=== PATIENT | female | born 1990 | race Caucasian/White ===

== ENCOUNTER 2019-01-08 16:49 | Outpatient (CLI) | payer OTHER ==
[2019-01-08 17:27] VITALS: BP 122/75
--- NOTE | 2019-01-08 18:58 | Ultrasound Report ---
OB ultrasound Limited to include biophysical profile. HISTORY: Postdates. Evaluate well-being. FINDINGS: Limited OB ultrasound was performed. A viable intrauterine in the cephalic positi on has heart tones of 128 bpm. Amniotic fluid index is 10.6. Biophysical profile score is normal at 8/8. 2 points were received for breathing movement, feta l movement, posture and 10 and amniotic fluid volume. IMPRESSION: 1. Amniotic fluid index 10.6. 2. Biophysical profile normal at 8 of 8. Signer Name: Og Curtis MD Signed: 01/08/2019 6:54 PM Workstation Name: [id number]
== END 2019-01-08 19:34 | disposition home or self-care (01) ==
LOC: TRG 16:49
PROVIDERS: ATTEND Obstetrics & Gynecology
DX: O47.1 False labor at or after 37 completed weeks of gestation (principal); Z3A.39 39 weeks gestation of pregnancy
CPT/HCPCS: 59025; 76815; 76819

== ENCOUNTER 2019-01-09 14:31 | Outpatient (CLI) | payer SELFPAY ==
[2019-01-09 15:13] VITALS: BP 125/79
== END 2019-01-09 17:10 | disposition home or self-care (01) ==
LOC: TRG 14:31
PROVIDERS: ATTEND Obstetrics & Gynecology
DX: O47.1 False labor at or after 37 completed weeks of gestation (principal); Z3A.39 39 weeks gestation of pregnancy

== ENCOUNTER 2019-01-10 00:31 | Inpatient (IN) | payer OTHER ==
[2019-01-10] MEDS ORDERED: STADOL IV PRN (06:07)
[2019-01-10] MEDS ORDERED: XYLOCAINE 2% INFILTRATI ONE (06:07)
[2019-01-10] MEDS ORDERED: ZOFRAN IV PRN (06:07)
[2019-01-10] MEDS ORDERED: MINERAL OIL PO PRN (06:07)
[2019-01-10] MEDS ORDERED: BRETHINE SUB-Q PRN (06:07)
--- NOTE | 2019-01-10 06:25 | History and Physical Report ---
History of Present Illness Date of examination: 01/10/19 Date of admission: 01/10/2019 Chief complaint: Post-term @ 41 weeks; Early labor History of present illness: 28 yo, @ 41wks gestation, pt of [facility] initiating care at 6.1 wks. 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 Reports positive FM. Denies vaginal bleeding or LOF. Her has been complicated by +Chlaydia (07/18/18), followed by negative JAISON (08/16/18) and Thrombocytopenia with RBCs of 118. Labs:O+, antibody negative; PAP normal; Rubella immune; VDRL negative; HBsAg negative; HIV negative; Gc negative; MSAFP negative; 1 hr gtt - 103; GBS negative She desires to use Nexplanon PP as BCM, and wishes to have infant circumcised Past History Past Medical History: no pertinent history Past Surgical History: no surgical history [id number] [employer]OR [employer] History: abnormal PAP smear (2016) Family/Genetic History: none Social history: no significant social history, single, full code. denies: smoking, alcohol abuse, prescription drug abuse, IV drug use - Obstetrical History Expected Date of Delivery: 01/03/19 Actual Gestation: 41 Week(s) 0 Day(s) : 1 Para: 0 Hx # Term Pregnancies: 0 Number of Pregnancies: 0 Spontaneous Abortions: 0 Induced : 0 Number of Living Children: 0 Medications and Allergies Allergies Allergy/AdvReac Type Severity Reaction Status Date / Time No Known Allergies Allergy Verified 01/08/19 17:13 Active Meds: Active Medications Butorphanol Tartrate (Stadol) 1 mg IV Q2H PRN PRN Reason: Pain, Moderate (4-6) Ephedrine Sulfate (Ephedrine Sulfate) 10 mg IV Q2M PRN PRN Reason: Hypotension Fentanyl (Sublimaze) 100 mcg IV Q2H PRN PRN Reason: Labor Pain Oxytocin/Sodium Chloride (Pitocin/Ns 20 Unit/1000ml Drip) 20 units in 1,000 mls @ 125 mls/hr IV DIRECT MERVAT Oxytocin/Sodium Chloride (Pitocin/Ns 30 Unit/500ml) 30 units in 500 mls @ 2 mls/hr IV TITR MERVAT; Protocol Lactated Ringer's (Lactated Ringers) 1,000 mls @ 125 mls/hr IV DIRECT MERVAT Mineral Oil (Mineral Oil) 30 ml PO QHS PRN PRN Reason: Constipation Ondansetron HCl (Zofran) 4 mg IV Q8H PRN PRN Reason: Nausea And Vomiting Terbutaline Sulfate (Brethine) 0.25 mg SUB-Q ONCE PRN PRN Reason: Hyperstimulation/Hypertonicity Review of Systems All systems: negative Genitourinary: contractions, no vaginal bleeding, no leakage of fluid, no genital sores - Vital Signs Vital signs: Vital Signs Pulse BP 59 L 134/82 01/10/19 00:56 01/10/19 00:56 Temp Pulse Resp BP Pulse Ox 98.6 F 62 14 119/79 01/10/19 06:19 01/10/19 06:19 01/10/19 06:19 01/10/19 06:19 - Physical Exam Breasts: Positive: deferred Cardiovascular: Regular rate Lungs: Positive: Normal air movement Abdomen: Positive: other (gravid) Genitourinary (Female): Positive: normal external genitalia, normal perenium Vagina: Positive: normal moisture, other (small amt of brown d/c) Uterus: Positive: other (S=D) Anus/Rectum: Positive: normal perianal skin Extremities: Positive: normal Deep Tendon Reflex Grade: Normal +2 - Obstetrical FHR: category 1 Uterine Contraction Monitor Mode: External Cervical Dilatation: 1 Cervical Effacement Percentage: 90 station: -1 Uterine Contraction Frequency (min): 2-4 Uterine Contraction Duration: 60-70 Uterine Contraction Pattern: Irregular Uterine Tone Measurement Phase: Resting Uterine Contraction Intensity: Moderate Results All other labs normal. Assessment and Plan - Patient Problems (1) 41 weeks gestation of Current Visit: Yes Status: Acute Plan to address problem: Admit to L & D Labor augmentation with Pitocin as tolerated Pain medication/ epidural as desired Anticipate (2) Thrombocytopenia affecting Current Visit: Yes Status: Acute
[2019-01-10] MEDS: SUBLIMAZE IV PRN ×3 (06:26→19:57)
[2019-01-10] MEDS ORDERED: PITOCin/NS 20 UNIT/1000ML DRIP 20 UNITS/1,000 ML BAG IV SCH (07:00)
[2019-01-10] MEDS: LACTATED RINGERS 1,000 ML IV SCH ×3 (07:51→15:04)
[2019-01-10] MEDS: PITOCin/NS 30 UNIT/500ML 30 UNITS/500 ML BAG IV SCH ×2 (07:52→08:38)
[2019-01-10 08:22] LABS: Hematocrit 39.8 % (30.3-42.9); Hemoglobin 13.4 gm/dl (10.1-14.3); Mean Corpuscular HGB Conc 34 % (30-34); Mean Corpuscular Volume 93 fl (79-97); Platelet Count 102 K/mm3 (140-440); Red Blood Count 4.29 M/mm3 (3.65-5.03)
--- NOTE | 2019-01-10 10:27 | Progress Note ---
Assessment and Plan A: IUP @ 41 Weeks Category I Tracing GBS Negative P: Cook's Cervical Ripening Balloon Placed Continue Pitocin Induction Subjective - Subjective Date of service: 01/10/19 Patient reports: contractions Objective - Vital Signs Vital Signs: Vital Signs - 12hr 01/10/19 01/10/19 01/10/19 00:56 01:27 01:57 Temperature Pulse Rate 59 L 60 59 L Respiratory Rate Blood Pressure 134/82 134/69 117/72 Blood Pressure [Right] 01/10/19 01/10/19 01/10/19 06:19 07:56 08:01 Temperature 98.6 F 98.6 F Pulse Rate 62 65 65 Respiratory 14 16 Rate Blood Pressure 119/79 101/59 Blood Pressure 101/59 [Right] - Exam Breasts: normal Cardiovascular: Regular rate Lungs: Clear to auscultation, Normal air movement Abdomen: Present: normal appearance, soft, normal bowel sounds Uterus: Present: normal, firm, fundal height above umbilicus FHR: category 1 Uterine Contraction Monitor Mode: External Cervical Dilatation: 2 Cervical Effacement Percentage: 80 station: -2 Uterine Contraction Frequency (min): 1-3 Uterine Contraction Pattern: Regular Uterine Tone Measurement Phase: Contraction Uterine Contraction Intensity: Moderate Extremities: normal - Labs Labs: Abnormal Labs 01/10/19 02:20 WBC 11.9 H Plt Count 102 L Laboratory Results - last 24 hr 01/10/19 01/10/19 02:20 02:20 WBC 11.9 H RBC 4.29 Hgb 13.4 Hct 39.8 MCV 93 MCH 31 MCHC 34 RDW 14.0 Plt Count 102 L Blood Type O POSITIVE Antibody Screen Negative
[2019-01-10] MEDS ORDERED: NARCAN 2 MG/2 ML IV PRN (11:31)
--- NOTE | 2019-01-10 11:32 | Anesthesia Consultation ---
Anesthesia Consult and Med Hx Date of service: 01/10/19 - Airway Anesthetic Teeth Evaluation: Good ROM Head & Neck: Adequate Mental/Hyoid Distance: Adequate Intubation Access Assessment: Good - Pulmonary Exam CTA: Yes - Cardiac Exam Cardiac Exam: RRR - Pre-Operative Health Status ASA Pre-Surgery Classification: ASA2 Proposed Anesthetic Plan: Epidural - Pulmonary Hx Asthma: No - Cardiovascular System Hx Hypertension: No - Central Nervous System Hx Seizures: No Hx Psychiatric Problems: No - Endocrine Hx Renal Disease: No Hx Hypothyroidism: No Hx Hyperthyroidism: No - Hematic Hx Anemia: No Hx Sickle Cell Disease: No - Other Systems Hx Alcohol Use: No
[2019-01-10] MEDS ORDERED: MARCAINE 0.25% INFILTRATI ONE (11:35)
[2019-01-10] MEDS ORDERED: fentaNYL-BUPIV 2 MCG/ML-0.125% 200 MCG/100 ML BAG EPIDURAL SCH (12:00)
--- NOTE | 2019-01-10 14:26 | Progress Note ---
Assessment and Plan A: IUP @ 41 Weeks Category I Tracing GBS Negative P: AROM Continue Pitocin Augmentation Subjective - Subjective Date of service: 01/10/19 Patient reports: movement normal, other (Resting well under epidural anesthesia; Consents to AROM) Objective - Vital Signs Vital Signs: Vital Signs - 12hr 01/10/19 01/10/19 01/10/19 06:19 07:56 08:01 Temperature 98.6 F 98.6 F Pulse Rate 62 65 65 Respiratory 14 16 Rate Blood Pressure 119/79 101/59 Blood Pressure 101/59 [Right] O2 Sat by Pulse Oximetry 01/10/19 01/10/19 01/10/19 11:36 11:41 11:42 Temperature Pulse Rate 64 70 80 Respiratory Rate Blood Pressure 120/64 Blood Pressure [Right] O2 Sat by Pulse 96 98 Oximetry 01/10/19 01/10/19 01/10/19 11:45 11:47 11:48 Temperature Pulse Rate 82 65 66 Respiratory Rate Blood Pressure 117/58 107/57 Blood Pressure [Right] O2 Sat by Pulse 94 97 Oximetry 01/10/19 01/10/19 01/10/19 11:51 11:52 11:54 Temperature Pulse Rate 58 L 76 97 H Respiratory Rate Blood Pressure 118/58 105/68 Blood Pressure [Right] O2 Sat by Pulse 94 95 Oximetry 01/10/19 01/10/19 01/10/19 11:57 11:59 12:00 Temperature Pulse Rate 79 69 74 Respiratory Rate Blood Pressure 104/66 97/61 Blood Pressure [Right] O2 Sat by Pulse 95 94 Oximetry 01/10/19 01/10/19 01/10/19 12:02 12:03 12:05 Temperature Pulse Rate 78 100 H 76 Respiratory Rate Blood Pressure 102/69 Blood Pressure [Right] O2 Sat by Pulse 96 93 Oximetry 01/10/19 01/10/19 01/10/19 12:06 12:07 12:09 Temperature Pulse Rate 76 105 H 61 Respiratory Rate Blood Pressure 106/72 110/78 Blood Pressure [Right] O2 Sat by Pulse 95 Oximetry 01/10/19 01/10/19 01/10/19 12:12 12:17 12:22 Temperature Pulse Rate 76 60 63 Respiratory Rate Blood Pressure Blood Pressure [Right] O2 Sat by Pulse 94 94 94 Oximetry 01/10/19 01/10/19 01/10/19 12:27 12:32 12:37 Temperature Pulse Rate 75 113 H 104 H Respiratory Rate Blood Pressure Blood Pressure [Right] O2 Sat by Pulse 94 94 95 Oximetry 01/10/19 01/10/19 01/10/19 12:42 12:47 12:51 Temperature Pulse Rate 83 67 64 Respiratory Rate Blood Pressure 112/74 Blood Pressure [Right] O2 Sat by Pulse 95 94 Oximetry 01/10/19 01/10/19 01/10/19 12:52 12:56 12:57 Temperature Pulse Rate 109 H 67 96 H Respiratory Rate Blood Pressure 105/68 Blood Pressure [Right] O2 Sat by Pulse 97 96 Oximetry 01/10/19 01/10/19 01/10/19 13:02 13:07 13:12 Temperature Pulse Rate 66 67 71 Respiratory Rate Blood Pressure Blood Pressure [Right] O2 Sat by Pulse 96 96 97 Oximetry 01/10/19 01/10/19 01/10/19 13:17 13:22 13:25 Temperature Pulse Rate 67 70 62 Respiratory Rate Blood Pressure 128/60 Blood Pressure [Right] O2 Sat by Pulse 96 96 Oximetry 01/10/19 01/10/19 01/10/19 13:27 13:32 13:37 Temperature Pulse Rate 73 64 75 Respiratory Rate Blood Pressure Blood Pressure [Right] O2 Sat by Pulse 96 95 95 Oximetry 01/10/19 01/10/19 01/10/19 13:41 13:42 13:47 Temperature Pulse Rate 66 81 68 Respiratory Rate Blood Pressure 110/70 Blood Pressure [Right] O2 Sat by Pulse 95 95 Oximetry 01/10/19 01/10/19 01/10/19 13:52 13:53 13:55 Temperature 98.1 F Pulse Rate 69 67 Respiratory Rate Blood Pressure 115/66 Blood Pressure [Right] O2 Sat by Pulse 95 Oximetry 01/10/19 01/10/19 01/10/19 13:57 14:02 14:07 Temperature Pulse Rate 66 74 63 Respiratory Rate Blood Pressure Blood Pressure [Right] O2 Sat by Pulse 95 96 95 Oximetry 01/10/19 01/10/19 01/10/19 14:11 14:12 14:17 Temperature Pulse Rate 60 62 81 Respiratory Rate Blood Pressure 111/53 Blood Pressure [Right] O2 Sat by Pulse 94 95 Oximetry 01/10/19 14:22 Temperature Pulse Rate 79 Respiratory Rate Blood Pressure Blood Pressure [Right] O2 Sat by Pulse 96 Oximetry - Exam Breasts: normal Cardiovascular: Regular rate Lungs: Normal air movement Abdomen: Present: normal appearance, soft Uterus: Present: normal, firm, fundal height above umbilicus FHR: category 1 Uterine Contraction Monitor Mode: External Cervical Dilatation: 5 (Large amount of clear fluid uponAROM at 1419) Cervical Effacement Percentage: 80 station: -2 Uterine Contraction Pattern: Regular Uterine Tone Measurement Phase: Resting Uterine Contraction Intensity: Moderate Extremities: normal - Labs Labs: Abnormal Labs 01/10/19 02:20 WBC 11.9 H Plt Count 102 L Laboratory Results - last 24 hr 01/10/19 01/10/19 01/10/19 02:20 02:20 02:20 WBC 11.9 H RBC 4.29 Hgb 13.4 Hct 39.8 MCV 93 MCH 31 MCHC 34 RDW 14.0 Plt Count 102 L RPR Nonreactive Blood Type O POSITIVE Antibody Screen Negative
[2019-01-10] MEDS ORDERED: MINERAL OIL PR PRN (19:00)
[2019-01-10] MEDS ORDERED: FLEET MINERAL OIL PR ONE (19:30)
[2019-01-10] MEDS ORDERED: LANSINOH TP PRN (20:39)
[2019-01-10] MEDS ORDERED: BENADRYL PO PRN (20:39)
[2019-01-10] MEDS ORDERED: NORCO 5/325 PO PRN (20:39)
[2019-01-10] MEDS ORDERED: TUCKS PAD TP PRN (20:39)
[2019-01-10] MEDS ORDERED: DULCOLAX PR PRN (20:39)
--- NOTE | 2019-01-10 20:53 | Procedure Note ---
OB Delivery Note - Delivery Date of Delivery: 01/10/19 (1930) Surgeon: IRIS AZEVEDO Estimated blood loss: 300cc - Vaginal Delivery presentation: vertex Delivery position: OA Intrapartum events: none Delivery induction: cervidil Delivery augmentation: rupture of membranes, pitocin Delivery monitor: external FHT, external uterine Route of delivery: Delivery placenta: spontaneous Delivery cord: 3 umbilical vessels Episiotomy: midline (2nd) Delivery laceration: none Delivery repair: vicryl Anesthesia: epidural Delivery comments: of a live 8'13 male infant over a 2nd degree episiotomy under epidural anesthesia with Apgars of 8 and 9 at 1930 on 01/10/2019. Infant directly to maternal abd/chest, skin to skin contact. Spontaneous delivery of placenta complete and intact with Roy side presenting at 1934. Fundus is firm and midline located 5 below the U. Lochia is scant. Delayed cord clamping and cutting; Cord cut by the Father of the Baby. Cord blood collected. Episiotomy repaired with 3-[address]-1.
[2019-01-10] MEDS ORDERED: IBUPROFEN PO SCH (21:00)
[2019-01-10] MEDS ORDERED: SODIUM CHLORIDE FLUSH SYRINGE 10 ML IV PRN (21:00)
[2019-01-10] MEDS: IBUPROFEN PO SCH (23:03)
[2019-01-10] MEDS: PRENATAL VITAMIN PO SCH (23:03)
[2019-01-11] MEDS: IBUPROFEN PO SCH ×3 (06:21→17:58)
--- NOTE | 2019-01-11 08:34 | Progress Note ---
Assessment and Plan A: PP Day #1 Voiding difficulty P: Follow Routine Orders Increase hydration More frequent ambulation Subjective - Subjective Date of service: 01/11/19 Patient reports: appetite normal, pain well controlled, flatus, ambulating normally, other (states she has voided, but is having some difficulty with the sensation to urinate) [place]: doing well Objective - Vital Signs Latest vital signs: Vital Signs Temp Pulse Resp BP BP Pulse Ox 01/11/19 05:40 97.4 F L 70 18 120/75 97 01/11/19 01:30 98.3 F 74 18 111/64 96 01/10/19 22:35 99.1 F 72 16 114/74 96 01/10/19 21:35 85 95 01/10/19 21:31 80 100/55 01/10/19 21:30 87 95 01/10/19 21:25 86 94 01/10/19 21:20 86 94 01/10/19 21:15 88 106/59 93 01/10/19 21:10 100 H 93 01/10/19 21:05 105 H 94 01/10/19 21:04 104 H 88 01/10/19 21:00 95 H 105/62 94 01/10/19 20:57 18 01/10/19 20:55 100 H 95 01/10/19 20:50 94 H 94 01/10/19 20:45 93 H 105/60 94 01/10/19 20:40 104 H 94 01/10/19 20:35 98 H 95 01/10/19 20:31 100.4 F H 101 H 18 107/60 95 01/10/19 20:30 87 107/60 95 01/10/19 19:57 18 01/10/19 19:55 93 H 108/61 01/10/19 19:40 117 H 111/68 01/10/19 19:25 92 H 144/65 01/10/19 19:09 81 142/71 01/10/19 18:55 93 H 143/70 01/10/19 18:40 64 130/59 01/10/19 18:37 69 72 L 01/10/19 18:33 78 98 01/10/19 18:30 99.6 F 01/10/19 18:27 100 H 99 01/10/19 18:26 78 147/90 01/10/19 18:22 108 H 99 01/10/19 18:17 75 98 01/10/19 18:12 83 97 01/10/19 18:11 76 110/55 01/10/19 18:07 81 97 01/10/19 18:02 78 98 01/10/19 17:57 82 98 01/10/19 17:55 75 111/58 01/10/19 17:52 85 100 01/10/19 17:47 93 H 100 01/10/19 17:43 77 134/59 01/10/19 17:42 74 97 01/10/19 17:37 91 H 91 01/10/19 17:32 80 95 01/10/19 17:27 56 L 97 01/10/19 17:26 73 95/74 01/10/19 17:22 67 99 01/10/19 17:17 63 98 01/10/19 17:12 68 99 01/10/19 17:10 52 L 114/76 01/10/19 17:07 71 97 01/10/19 17:02 59 L 99 01/10/19 16:57 71 97 01/10/19 16:55 65 119/81 01/10/19 16:52 60 98 01/10/19 16:47 60 97 01/10/19 16:42 59 L 97 01/10/19 16:40 67 118/65 01/10/19 16:37 61 95 01/10/19 16:32 61 97 01/10/19 16:27 59 L 100 01/10/19 16:25 61 124/72 01/10/19 16:22 60 96 01/10/19 16:17 75 95 01/10/19 16:12 69 96 01/10/19 16:11 62 100/56 01/10/19 16:07 60 96 01/10/19 16:02 79 95 01/10/19 15:57 64 96 01/10/19 15:54 63 94/54 01/10/19 15:52 64 95 01/10/19 15:47 60 94 01/10/19 15:42 64 96/52 96 01/10/19 15:37 67 96 01/10/19 15:32 59 L 94 01/10/19 15:27 61 95 01/10/19 15:25 65 96/53 01/10/19 15:22 61 94 01/10/19 15:17 61 94 01/10/19 15:12 70 94 01/10/19 15:10 63 112/60 01/10/19 15:07 63 94 01/10/19 15:02 68 95 01/10/19 14:57 67 96 01/10/19 14:56 62 98/57 01/10/19 14:52 67 97 01/10/19 14:48 71 96 01/10/19 14:42 72 96 01/10/19 14:41 68 104/51 01/10/19 14:37 64 96 01/10/19 14:32 57 L 96 01/10/19 14:27 87 96 01/10/19 14:25 66 109/68 01/10/19 14:22 79 96 01/10/19 14:17 81 95 01/10/19 14:12 62 94 01/10/19 14:11 60 111/53 01/10/19 14:07 63 95 01/10/19 14:02 74 96 01/10/19 13:57 66 95 01/10/19 13:55 67 115/66 01/10/19 13:53 98.1 F 01/10/19 13:52 69 95 01/10/19 13:47 68 95 01/10/19 13:42 81 95 01/10/19 13:41 66 110/70 01/10/19 13:37 75 95 01/10/19 13:32 64 95 01/10/19 13:27 73 96 01/10/19 13:25 62 128/60 01/10/19 13:22 70 96 01/10/19 13:17 67 96 01/10/19 13:12 71 97 01/10/19 13:07 67 96 01/10/19 13:02 66 96 01/10/19 12:57 96 H 96 01/10/19 12:56 67 105/68 01/10/19 12:52 109 H 97 01/10/19 12:51 64 112/74 01/10/19 12:47 67 94 01/10/19 12:42 83 95 01/10/19 12:37 104 H 95 01/10/19 12:32 113 H 94 01/10/19 12:27 75 94 01/10/19 12:22 63 94 01/10/19 12:17 60 94 01/10/19 12:12 76 94 01/10/19 12:09 61 110/78 01/10/19 12:07 105 H 95 01/10/19 12:06 76 106/72 01/10/19 12:05 76 93 01/10/19 12:03 100 H 102/69 01/10/19 12:02 78 96 01/10/19 12:00 74 97/61 01/10/19 11:59 69 94 01/10/19 11:57 79 104/66 95 01/10/19 11:54 97 H 105/68 01/10/19 11:52 76 95 01/10/19 11:51 58 L 118/58 94 01/10/19 11:48 66 107/57 01/10/19 11:47 65 97 01/10/19 11:45 82 117/58 94 01/10/19 11:42 80 120/64 01/10/19 11:41 70 98 01/10/19 11:36 64 96 Intake and Output 01/10/19 01/11/19 01/11/19 22:59 06:59 14:59 Intake Total 544.733 240 Output Total 600 400 Balance -55.267 -160 Intake: IV 544.733 Lactated Ringers 1,000 ml 518.75 @ 125 mls/hr IV DIRECT [facility] Rx#:[id number] PITOCin/NS 30 UNIT/500ML 25.983 30 units In 500 ml @ 2 MILLIUNITS/MIN 2 mls/hr IV TITR MERVAT Rx#:[id number] Intake, Free Water 240 Output: Urine 600 400 Uretheral ([place]son) 600 Void 400 Other: Total, Output Amount 400 Estimated Blood Loss 300 - Exam Breasts: Present: normal Cardiovascular: Present: Regular rate Lungs: Present: Clear to auscultation, Normal air movement Abdomen: Present: normal appearance, soft, normal bowel sounds Vulva: both: laceration/episiotomy (labial edema) Uterus: Present: normal, firm, fundal height below umbilicus Extremities: Present: normal
[2019-01-11 09:46] LABS: Hematocrit 33.1 % (30.3-42.9); Hemoglobin 11.2 gm/dl (10.1-14.3)
[2019-01-11] MEDS: PRENATAL VITAMIN PO SCH (10:19)
[2019-01-11] MEDS ORDERED: DERMOPLAST TP PRN (16:56)
--- NOTE | 2019-01-12 06:52 | Post Anesthesia Evaluation ---
- Post Anesthesia Evaluation Patient Participated: Yes Airway Patent: Yes Stable Respiratory Function: Yes Nausea/Vomiting: No Temp > 96.8F: Yes Pain Manageable: Yes Adequeate Hydration: Yes Anesthesia Complications: No Block Receding Appropriately: Yes Patient on Ventilator: No
[2019-01-12] MEDS: IBUPROFEN PO SCH ×3 (07:03→14:27)
--- NOTE | 2019-01-12 09:48 | Progress Note ---
Assessment and Plan - Patient Problems (1) (normal spontaneous vaginal delivery) Current Visit: Yes Status: Acute Plan to address problem: D/C home today Keep episiotomy site clean and dry F/u in office in 6 wks or prn Subjective - Subjective Date of service: 01/12/19 (0943) Principal diagnosis: Interval history: 28 yo, @ 41wks gestation, pt of [facility] initiating care at 6.1 wks. 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 Reports positive FM. Denies vaginal bleeding or LOF. Her has been complicated by +Chlaydia (07/18/18), followed by negative JAISON (08/16/18) and Thrombocytopenia with RBCs of 118. Labs:O+, antibody negative; PAP normal; Rubella immune; VDRL negative; HBsAg negative; HIV negative; Gc negative; MSAFP negative; 1 hr gtt - 103; GBS negative She desires to use Nexplanon PP as BCM, and wishes to have circumcised Patient reports: appetite normal, voiding normally (States she feels much better and is urinating without difficulty today and feels like her bladder is actually empting now), pain well controlled, flatus, ambulating normally, no bowel movement : doing well, bottle feeding Objective - Vital Signs Latest vital signs: Vital Signs Temp Pulse Resp BP Pulse Ox 01/12/19 01:18 97.5 F L 67 18 104/57 98 01/12/19 00:00 20 01/11/19 17:17 97.6 F 71 18 109/79 99 01/11/19 12:11 97.4 F L 65 16 104/73 99 Intake and Output 01/11/19 01/12/19 01/12/19 23:59 07:59 15:59 Intake Total 360 480 Output Total 300 Balance 60 480 Intake: Intake, Free Water 360 480 Output: Urine 300 Void 300 Other: Total, Output Amount 300 # Voids Void 1 1 - Exam Breasts: Present: deferred Cardiovascular: Present: Regular rate Lungs: Present: Normal air movement Abdomen: Present: soft, normal bowel sounds Vulva: both: laceration/episiotomy (Healing as expected) Uterus: Present: firm, fundal height below umbilicus (U-2) Extremities: Present: normal Deep Tendon Reflex Grade: Normal +2 Incision: Present: dry, intact
--- NOTE | 2019-01-12 09:49 | Discharge Summary ---
Providers - Providers Date of Admission: 01/10/19 06:14 Date of discharge: 01/12/19 (1200) Attending physician: TOM SALGADO MD Primary care physician: TOM SALGADO MD Hospitalization Reason for admission: IUP at term, other (Augmentation of labor) Delivery: Episiotomy: midline Laceration: none Incision: dry, intact Other procedures: none complications: none Discharge diagnosis: IUP at term delivered baby: male Hospital course: See admission H & P; OB delivery summary and PP progress notes Condition at discharge: Good Disposition: DC-01 TO HOME OR SELFCARE - Discharge Diagnoses (1) (normal spontaneous vaginal delivery) Status: Acute Plan - Provider Discharge Summary Activity: routine, no sex for 6 weeks, no heavy lifting 4 weeks, no strenuous exercise Diet: routine Instructions: routine Additional instructions: [] Smoking cessation referral if applicable(refer to patient education folder for contact #) [] Refer to [facility]'s [facility] Booklet Call your doctor immediately for: * Fever > 100.5 * Heavy vaginal bleeding ( >1 pad per hour) * Severe persistent headache * Shortness of breath * Reddened, hot, painful area to leg or breast * Drainage or odor from incision. * Keep incision clean and dry at all times and follow doctor's instructions regarding bathing/showering - Follow up plan Follow up: TOM SALGADO MD [Primary Care Provider] - 6 Weeks
[2019-01-12 13:33] VITALS: BP 109/79
== END 2019-01-12 15:00 | disposition home or self-care (01) | DRG 806 ==
LOC: TRG 00:31 → LD 06:14 → OBSVTOIN 06:14 → LD 06:28 → OB 22:00
PROVIDERS: ADMIT Obstetrics & Gynecology; ATTEND Obstetrics & Gynecology
PROC: 10E0XZZ Delivery of Products of Conception, External Approach (ICD-10-PCS; principal; 2019-01-10)
PROC: 0U7C7ZZ Dilation of Cervix, Via Natural or Artificial Opening (ICD-10-PCS; 2019-01-10)
PROC: 10907ZC Drainage of Amniotic Fluid, Therapeutic from Products of Conception, Via Natural or Artificial Opening (ICD-10-PCS; 2019-01-10)
PROC: 0W8NXZZ Division of Female Perineum, External Approach (ICD-10-PCS; 2019-01-10)
PROC: 3E0R3BZ Introduction of Anesthetic Agent into Spinal Canal, Percutaneous Approach (ICD-10-PCS; 2019-01-10)
PROC: 00HU33Z Insertion of Infusion Device into Spinal Canal, Percutaneous Approach (ICD-10-PCS; 2019-01-10)
PROC: 3E0P7VZ Introduction of Hormone into Female Reproductive, Via Natural or Artificial Opening (ICD-10-PCS; 2019-01-10)
DX: O48.0 Post-term pregnancy (principal); O99.12 Other diseases of the blood and blood-forming organs and certain disorders involving the immune mechanism complicating childbirth; Z37.0 Single live birth; Z3A.41 41 weeks gestation of pregnancy; D69.6 Thrombocytopenia, unspecified
CPT/HCPCS: 36415; 85014; 85018; 85027; 86592; 86850; 86900; 86901; G0378; A6250; J2590; J3010; J7120